=== PATIENT | male | born 2000 | race African-American/Black ===

== ENCOUNTER 2023-09-01 12:25 | Emergency (ER) | payer OTHER ==
[~2023-09-01] VITALS: Ht 180.3 cm; Wt 96.0 kg
[2023-09-01 12:30] VITALS: O2SAT 100
[2023-09-01 13:08] VITALS: BP 137/84; PULSE 100; RESP 18; TEMP 98.3
== END 2023-09-01 14:06 | disposition home or self-care (01) ==
LOC: ER 13:41
DX: I88.9 Nonspecific lymphadenitis, unspecified (principal); R22.1 Localized swelling, mass and lump, neck
CPT/HCPCS: 99281